=== PATIENT | male | born 1945 | race Caucasian/White ===

== ENCOUNTER → 2018-04-04 01:28 | Outpatient (CLI) | payer MEDICARE, BC, SELFPAY ==
--- NOTE | 2018-04-04 14:38 | SCREENCT_ITS ---
SYMPTOM/DIAGNOSIS: PERSONAL HX NICOTINE DEPENDENCY Z87.[address] FOR LUNG CANCER SCREENING PROTOCOL: 04/[address] was performed utilizing lung cancer screening protocol. Previous requisition indicates the patient has a history of lung carcinoma. There is a spiculated lesion measuring about 3 cm in greatest diameter in the right upper lobe consistent with a previously treated lesion. This appears stable in size in comparison with previous examination of 04/10/17. No new additional lesions identified. No new intrapulmonary nodules seen. CONCLUSION: No gross interval change in appearance of previously noted lung carcinoma. No new nodules identified. Category 2-C, continue annual screening with LDCT in 12 months. Lung-RAD Category: Lung RADS Category 2- Benign Appearance/Behavior
== END ==
PROVIDERS: PCP Internal Medicine; Visit Provider Internal Medicine
DX: Z85.118 Personal history of other malignant neoplasm of bronchus and lung (principal); Z87.891 Personal history of nicotine dependence
CPT/HCPCS: G0297

== ENCOUNTER 2018-05-01 14:32 | Outpatient (CLI) | payer MEDICARE, BC, SELFPAY ==
[2018-05-01 14:53] LABS: HCT 42.3 % (40.0-50.0); HGB 13.5 g/dL (13.5-17.5); Mean Corp. HGB Concentration 31.9 g/dL (32.0-36.0); Mean Corpuscular Hemoglobin 30.2 pg (27.0-33.0); Mean Corpuscular Volume 94.6 fL (80-95); Mean Platelet Volume 9.9 fL (8.0-11.0); Platelet Count 218 x1000/uL (130-400); RBC 4.47 m/cumm (4.50-6.00); RBC Distribution Width 13.2 % (11.8-14.1); White Blood Cell Count 9.45 k/cumm (4.4-10.8)
[2018-05-01 15:33] LABS: ESR 10 MM/HR (1-20)
[2018-05-01 16:35] LABS: ALT 21 U/L (12-78); AST 16 U/L (15-37); Albumin 3.9 g/dL (3.4-5.0); Alkaline Phosphatase 99 U/L (46-116); Anion Gap 8.9 mmol/L (3-11); BUN 13 mg/dL (7-18); Bilirubin, Total 0.3 mg/dL (0.2-1.0); CO2 29.1 mmol/L (21.0-32.0); CREATININE 0.84 mg/dL (0.70-1.30); Calcium 9.1 mg/dL (8.5-10.1); Chloride 103 mmol/L (98-107); Cholesterol 136 mg/dL (50-200); Glucose 122 mg/dL (70-100); HDL Cholesterol 48 mg/dL (40-60); LDL CHOLESTEROL 77 mg/dL (<100); Potassium 4.3 mmol/L (3.5-5.1); Sodium 141 mmol/L (136-145); Triglyceride 99 mg/dL (30-150)
== END 2018-05-01 14:52 ==
PROVIDERS: PCP Internal Medicine; Visit Provider Internal Medicine
DX: I10 Essential (primary) hypertension (principal); J44.9 Chronic obstructive pulmonary disease, unspecified; M25.512 Pain in left shoulder
CPT/HCPCS: 36415; 80053; 80061; 83721; 85027; 85652

== ENCOUNTER 2018-08-26 09:46 | Outpatient (CLI) | payer MEDICARE, BC, SELFPAY ==
--- NOTE | 2018-08-26 14:45 | DI.CT_ITS ---
SYMPTOM/DIAGNOSIS: H/O RUL LUNG CA, S/P RADIATION, ASSESS FOR RECURRENCE CHEST CT: Comparison is made with 04/10/17 and 04/04/18. A noncontrast exam was performed. There has been slight interval increase in size of previously noted right upper lobe mass and area of scarring. The mass appears denser when compared with previous exams. It measures 3 by 2 by 1.3 cm. A 4 by 6 mm. nodule is seen in the right middle lobe. Underlying emphysematous changes are noted. There is again noted to be a large bleb posterior to the heart. No infiltrates, pleural or pericardial effusions are seen. No adenopathy is seen. Multiple cysts are again demonstrated in the liver. The spleen is normal. The gallbladder, adrenals and visualized portions of the kidneys as well as gallbladder are unremarkable. Coronary artery calcifications and aortic calcifications are seen. There are severe degenerative changes in the lower thoracic spine as well as previous surgery in the upper lumbar region. An aortic stent is partially included on the exam. IMPRESSION: Interval increase in size and central density of the previously noted right upper lobe mass. A 4 by 6 mm. nodule is now seen in the right middle lobe.
== END 2018-08-26 10:06 ==
PROVIDERS: PCP Internal Medicine; Visit Provider Nurse Practitioner
DX: C34.91 Malignant neoplasm of unspecified part of right bronchus or lung (principal); Z92.3 Personal history of irradiation; R91.1 Solitary pulmonary nodule
CPT/HCPCS: 71250

== ENCOUNTER 2018-12-27 01:12 | Outpatient (CLI) | payer MEDICARE, BC, SELFPAY ==
--- NOTE | 2018-12-27 12:45 | DI.CT_ITS ---
SYMPTOMS/DIAGNOSIS: RIGHT LUNG CA, C34.11, INCREASING SIZE OF RIGHT UPPER LOBE MASS, ASSESS PROGRESSION CHEST CT: Comparison is made with August,. A post contrast exam was performed. There has been no change in size or appearance of the previously noted mass in the posterior right upper lobe. A 6 mm nodule was seen on the previous exam in the right middle lobe, which was not identified on the current exam. No new nodules are identified. There are no pleural or pericardial effusions. Underlying emphysematous changes and atherosclerotic changes of the aorta are again noted. Cysts are again identified in the liver. The adrenals and upper portions of the spleen and kidneys are unremarkable. Degenerative changes are noted in the spine. IMPRESSION: Stable size and appearance of the right upper lobe mass.
[2018-12-27 13:19] LABS: CREATININE 0.86 mg/dL (0.70-1.30)
[2018-12-27] MEDS: Omnipaque 350 MG/ML 100 ML BTL IJ (14:03)
== END 2018-12-27 01:32 ==
PROVIDERS: PCP Internal Medicine; Visit Provider Nurse Practitioner
DX: C34.11 Malignant neoplasm of upper lobe, right bronchus or lung (principal)
CPT/HCPCS: 71260; 82565; J3490

== ENCOUNTER 2019-04-28 00:46 | Outpatient (CLI) | payer MEDICARE, BC, SELFPAY ==
[2019-04-28 12:34] LABS: CREATININE 0.86 mg/dL (0.70-1.30)
--- NOTE | 2019-04-28 13:13 | DI.CT_ITS ---
SYMPTOMS/DIAGNOSIS: CANCER, UPPER LOBE, RIGHT LUNG, C34.11; ASSESS FOR DISEASE PROGRESSION CHEST CT: Comparison is made with the prior study of 12/27/2018. The study was carried out according to the usual protocol with contrast enhancement. Again demonstrated is the right upper lobe mass, which appears unchanged in size. No other pulmonary mass or region of nodularity is demonstrated. There is evidence of COPD. There is no evidence of hilar or mediastinal adenopathy. There is no pleural effusion. The heart is not enlarged. Coronary artery calcification is demonstrated. There are atherosclerotic changes involving the aorta without evidence of an aneurysm. Again noted are hepatic cysts. The kidneys are intact, unchanged. The adrenals are unremarkable. SUMMARY: No interval change when compared with the prior study with note again made of a right upper lobe mass, which appears stable, measuring approximately 21-22 mm in diameter. There is evidence of COPD. No other mass or area of nodularity involving the lungs is apparent.
[2019-04-28] MEDS: Omnipaque 350 MG/ML 100 ML BTL IJ (13:19)
== END 2019-04-28 01:06 ==
PROVIDERS: PCP Internal Medicine; Visit Provider Nurse Practitioner
DX: C34.11 Malignant neoplasm of upper lobe, right bronchus or lung (principal); J44.9 Chronic obstructive pulmonary disease, unspecified
CPT/HCPCS: 36415; 71260; 82565; J3490

== ENCOUNTER 2022-05-31 14:56 | Outpatient (REF) | payer MEDICARE, SELFPAY ==
[2022-05-31 14:15] LABS: HCT 42.8 % (40.0-50.0); HGB 13.3 g/dL (13.5-17.5); MCH 30.2 pg (27.0-33.0); MCHC 31.1 % (32.0-36.0); MCV 97 fL (80-95); MPV 10.2 fL (8.0-11.0); Platelet Count 257 10^3/uL (130-400); RBC 4.41 10^6/uL (4.36-5.78); RDW 12.6 % (11.8-14.1); RDW-SD 45.4 fL
[2022-05-31 14:53] LABS: ALT 23 U/L (16-63); AST 17 U/L (15-37); Albumin 4.1 g/dL (3.4-5.0); Alkaline Phosphatase 106 U/L (46-116); Anion Gap 3.9 mmol/L (3-11); BUN 15 mg/dL (7-18); Bilirubin, Total 0.6 mg/dL (0.2-1.0); CO2 34.1 mmol/L (21.0-32.0); CREATININE 0.7 mg/dL (0.70-1.30); Calcium 9.5 mg/dL (8.5-10.1); Chloride 101 mmol/L (98-107); Estimated GFR 93.73 (mL/min/1.73m2); Glucose 106 mg/dL (74-106); Potassium 4.9 mmol/L (3.5-5.1); Sodium 139 mmol/L (136-145); TSH (W/Ref FT4) 1.56 uIU/mL (0.36-3.74); Total Protein 7.3 g/dL (6.4-8.2); Vitamin B12 759 pg/mL (193-986)
== END 2022-05-31 14:57 | disposition home or self-care (01) ==
LOC: LBN 14:56
PROVIDERS: PCP Nurse Practitioner Family; Visit Provider Family Medicine
DX: D50.9 Iron deficiency anemia, unspecified (principal); J96.11 Chronic respiratory failure with hypoxia; M06.9 Rheumatoid arthritis, unspecified; R53.83 Other fatigue; J43.2 Centrilobular emphysema; J96.02 Acute respiratory failure with hypercapnia; E11.9 Type 2 diabetes mellitus without complications
CPT/HCPCS: 80053; 85027; 82607; 83036; 84443

== ENCOUNTER 2023-05-16 21:57 | Emergency (ER) | payer MEDICARE, SELFPAY ==
[2023-05-16 21:59] VITALS: BP 171/91; PULSE 99; RESP 18; TEMP 36.8; O2SAT 95
--- NOTE | 2023-05-16 22:12 | ED.GENADUL_ITS ---
Discharge Plan Disposition Patient Disposition: Home Condition: Stable Discharge Details Clinical Impression: Dental infection Primary Care Provider: Chris Call ED Provider: Turner Deutsch [place] Meds and New Rx's Prescriptions: New clindamycin HCl 150 mg capsule 450 mg PO TID 7 Days Qty: 63 0RF Continued (DME) inhaler,assist devices,access Device See Rx Instructions .ROUTE .MEDSUPPLY Qty: 1 0RF Rx Instructions: As directed naloxone [Narcan] 4 mg/actuation spray,non-aerosol 4 mg NS PRN Qty: 2 0RF Stelara 90 MG/1 ML syringe 90 mg SQ [id number] Patient Comments: 12/06/16-Not taking as insurance won't pay/pps mometasone 50 mcg/actuation spray,non-aerosol 2 spray PORSCHE DAILY Qty: 17 5RF Rx Instructions: administer into each nostril guaifenesin 200 mg/5 mL liquid 200 mg PO Q4H PRN (Reason: cough) Qty: 473 0RF (DME) Aerochamber MV Spacer See Rx Instructions .ROUTE .MEDSUPPLY Qty: 1 0RF Rx Instructions: As directed (DME) Oxygen Tank See Rx Instructions .ROUTE .MEDSUPPLY Qty: 1 0RF Rx Instructions: 3Lpm continuous flow as directed (continuous flow portable concentrator) Breztri Aerosphere 160-9-4.8 mcg/actuation HFA aerosol inhaler See Rx Instructions .ROUTE .COMPLEX Qty: 10.7 12RF Dose Instruction: INHALE 2 PUFFS BY MOUTH TWICE DAILY FOR COPD Rx Instructions: INHALE 2 PUFFS BY MOUTH TWICE DAILY FOR COPD dextromethorphan-guaifenesin 20-400 mg/5 mL liquid 5 ml PO Q6H PRN (Reason: cough) Qty: 473 6RF atorvastatin 40 mg tablet 40 mg PO QPM Qty: 90 3RF tamsulosin [Flomax] 0.4 mg capsule 0.8 mg PO QAM Qty: 180 4RF mesalamine [Lialda] 1.2 gram tablet,delayed release (DR/EC) 1.2 g PO DAILY Qty: 90 3RF diclofenac sodium 1 % gel 4 g topical QID Qty: 100 3RF Rx Instructions: Apply to affected area four times daily as needed. acetylcysteine [NAC] 600 mg capsule 600 mg PO BID Qty: 60 12RF sertraline 100 mg tablet 200 mg PO DAILY Qty: 180 3RF albuterol sulfate 2.5 mg /3 mL (0.083 %) solution for nebulization 2.5 mg inhalation Q4H PRN (Reason: shortness of breath or wheezing) Qty: 540 3RF albuterol sulfate [ProAir HFA] 90 mcg/actuation HFA aerosol inhaler 2 puff Inhalation Q4H PRN Qty: 3 4RF finasteride 5 mg tablet 5 mg PO HS Qty: 90 4RF oxycodone-acetaminophen 10-325 mg tablet 1 tab PO Q6H MDD 4 pills PRN (Reason: pain) Qty: 120 0RF lorazepam [Ativan] 1 mg tablet 1 mg PO BID-TID PRN (Reason: anxiety) Qty: 5 0RF Rx Instructions: take only if needed for anxiety. multivitamin 1 EACH capsule 1 ea PO Discharge Instructions Additional Instructions: You are being treated for a dental infection You should follow up with a dentist as soon as possible if you feel more ill, have severe worsening pain or new symptoms such as inability to swallow liquids return to the emergency department Medical Decision Making 78 yo male who has multiple medical problems and is on home o2 and states is hard for him to leave the house, comes in with 3 days of dental pain. HE localizes the pain to the right lower mid molars. HE is caox4 speaking clearly on arrival in no distress. He has mild swelling of the right lower mid mandible, numerous dental caries. HE has tenderness over the right lower mid molar, no visible abscess. NOrmal posterior pharynx, midline uvula, no restricted neck movements. He has no submandibular swelling, no restricted neck movemements and no pain over the hyoid. HE denies fevers/chills. No findings on exam to suggest ludwigs or other more serious infections such as epiglotitis. Will start on clindamycin given pcn allergy, advised he needs to f/u with a dentist erika and return precautions given Differential Diagnosis Differential Diagnosis: dental infection, abscess HPI General Mode of arrival: EMS . Date/Time Provider Initiated Documentation: 05/16/23 22:04 . Limitations to Documentation: no limitations . Information obtained by: patient . History of Present Illness 78 year old M presents to the emergency department with the chief complaint of right lower dental pain/swelling, described as moderate, Quality is described as aching, Patient started experiencing this day(s) (3) and it has been constant. No relieving factors improve symptom(s), No exacerbating factors reported . Patient notes no other symptoms.. Related Data Home Medications Medication Instructions Recorded Confirmed ustekinumab 90 mg/mL subcutaneous 90 mg SQ [id number] 12/29/15 04/11/23 syringe (Stelara) multivitamin 1 ea PO 05/28/17 04/11/23 mometasone 50 mcg/actuation nasal 2 spray intranasal DAILY #17 grams 06/16/19 04/11/23 spray guaifenesin 200 mg/5 mL oral liquid 200 mg (5 mL) PO Q4H PRN cough 09/16/20 04/11/23 #473 mL inhaler,assist devices,access #1 ea 03/25/21 04/11/23 inhalational spacing device #1 ea 04/07/21 04/11/23 (Aerochamber MV spacer) naloxone 4 mg/actuation nasal 4 mg NS PRN #2 ea 12/14/21 04/11/23 spray (Narcan) Oxygen #1 ea 12/29/21 04/11/23 budesonide 160 mcg-glycopyr 9 See Rx Instructions .Route 05/11/22 04/11/23 mcg-formot 4.8 mcg/actuation HFA .COMPLEX #10.7 grams inhaler (Breztri Aerosphere) dextromethorphan-guaifenesin 20 5 ml PO Q6H PRN cough #473 mL 06/21/22 04/11/23 mg-400 mg/5 mL oral liquid atorvastatin 40 mg tablet 40 mg PO QPM #90 tabs 09/13/22 04/11/23 tamsulosin 0.4 mg capsule (Flomax) 0.8 mg PO QAM #180 caps 09/13/22 04/11/23 mesalamine 1.2 gram tablet,delayed 1.2 g PO DAILY #90 tab-caps 09/18/22 04/11/23 release (Lialda) diclofenac sodium 1 % topical gel 4 g topical QID #100 grams 11/29/22 04/11/23 acetylcysteine 600 mg capsule (NAC) 600 mg PO BID #60 caps 12/11/22 04/11/23 sertraline 100 mg tablet 200 mg PO DAILY #180 tabs 01/10/23 04/11/23 albuterol sulfate 2.5 mg/3 mL 2.5 mg (3 mL) inhalation Q4H PRN 02/01/23 04/11/23 (0.083 %) solution for nebulization shortness of breath or wheezing #540 mL albuterol sulfate 90 mcg/actuation 2 puff inhalation Q4H PRN ##3 02/01/2304/11 aerosol inhaler (ProAir HFA) finasteride 5 mg tablet 5 mg PO HS #90 tabs 02/08/23 04/11/23 oxycodone-acetaminophen 10 mg-325 1 tab PO Q6H PRN pain #120 tabs 05/02/23 mg tablet lorazepam 1 mg tablet (Ativan) 1 mg PO BID-TID PRN anxiety #5 05/09/23 tab-caps clindamycin HCl 150 mg capsule 450 mg PO TID 7 days #63 caps 05/16/23 Previous Rx's Medication Instructions Recorded mometasone 50 mcg/actuation nasal 2 spray intranasal DAILY #17 grams 06/16/19 spray guaifenesin 200 mg/5 mL oral liquid 200 mg (5 mL) PO Q4H PRN cough 09/16/20 #473 mL inhaler,assist devices,access #1 ea 03/25/21 inhalational spacing device #1 ea 04/07/21 (Aerochamber MV spacer) naloxone 4 mg/actuation nasal 4 mg NS PRN #2 ea 12/14/21 spray (Narcan) Oxygen #1 ea 12/29/21 budesonide 160 mcg-glycopyr 9 See Rx Instructions .Route 05/11/22 mcg-formot 4.8 mcg/actuation HFA .COMPLEX #10.7 grams inhaler (Breztri Aerosphere) dextromethorphan-guaifenesin 20 5 ml PO Q6H PRN cough #473 mL 06/21/22 mg-400 mg/5 mL oral liquid atorvastatin 40 mg tablet 40 mg PO QPM #90 tabs 09/13/22 tamsulosin 0.4 mg capsule (Flomax) 0.8 mg PO QAM #180 caps 09/13/22 mesalamine 1.2 gram tablet,delayed 1.2 g PO DAILY #90 tab-caps 09/18/22 release (Lialda) diclofenac sodium 1 % topical gel 4 g topical QID #100 grams 11/29/22 acetylcysteine 600 mg capsule (NAC) 600 mg PO BID #60 caps 12/11/22 sertraline 100 mg tablet 200 mg PO DAILY #180 tabs 01/10/23 albuterol sulfate 2.5 mg/3 mL 2.5 mg (3 mL) inhalation Q4H PRN 02/01/23 (0.083 %) solution for nebulization shortness of breath or wheezing #540 mL albuterol sulfate 90 mcg/actuation 2 puff inhalation Q4H PRN ##3 02/01/23 aerosol inhaler (ProAir HFA) finasteride 5 mg tablet 5 mg PO HS #90 tabs 02/08/23 oxycodone-acetaminophen 10 mg-325 1 tab PO Q6H PRN pain #120 tabs 05/02/23 mg tablet lorazepam 1 mg tablet (Ativan) 1 mg PO BID-TID PRN anxiety #5 05/09/23 tab-caps clindamycin HCl 150 mg capsule 450 mg PO TID 7 days #63 caps 05/16/23 Allergies Allergy/AdvReac Type Severity Reaction Status Date / Time levofloxacin Allergy Severe severe Verified 04/11/23 10:52 calf pain Penicillins Allergy Unknown Verified 04/11/23 10:52 sertraline AdvReac Intermediate Myalgias Verified 04/11/23 10:52 erythromycin base AdvReac Unknown NAUSEA/ Verified 04/11/23 10:52 VOMITING General Stated Complaint: DentalOral LESLEY: 4 Review of Systems All systems reviewed & are unremarkable except as noted in HPI and below Constitutional Constitutional: Denies chills, Denies fever(s) and Denies weakness Cardiovascular Cardiovascular: Denies chest pain and Denies dyspnea Respiratory Respiratory: Denies cough and Denies dyspnea Gastrointestinal Gastrointestinal: Denies abdominal pain, Denies nausea and Denies vomiting Musculoskeletal Musculoskeletal: Denies joint swelling Neurologic Neurologic: Denies weakness Endocrine Endocrine: Denies cold intolerance PFSH All Active Problems (Updated 05/16/23 @ 22:16 by Turner Deutsch MD) Dental infection (Acute) Generalized muscle weakness (Acute) Insomnia (Acute) Respiratory failure with hypoxia (Acute) Supplemental oxygen dependent (Acute) Anxiety (Chronic) Depression (Chronic) Cholelithiasis without obstruction (Acute) History of spinal fusion (Acute) Iron deficiency anemia (Acute) Sleep disorder (Chronic 02/25/14) Rheumatoid arthritis (Chronic) Psoriasis (Chronic) Pain in thoracic spine (Chronic) Knee pain (Chronic) Hyperlipidemia (Chronic) Fatigue (Chronic 07/15/07) Essential hypertension (Chronic) Disorder characterized by back pain (Chronic) S/P spinal fusion 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 Be in the office until May 12 which is about a week after his third prescription of 120 pills might . I will try to make a third prescription lasts an extra week if the pharmacy will allow it. I explained the situation to him and he understands. He may need to get this filled from a different provider here in April therefore. BPH (benign prostatic hyperplasia) (Chronic 12/16/12) Aortic aneurysm (Acute) AAA-repaired 2006 ([facility] [place] Non-small cell carcinoma of lung (Chronic) February 2010 a. presented with 1.8 cm spiculated nodule, positive PET scan, received radiation and chemotherapy since that time, no metastatic disease found b. follow up CT 11/21/2013 showed a decrease in size of lingular density, positive liver cysts, but no evidence of metastatic disease COPD (chronic obstructive pulmonary disease) (Chronic) a. ongoing tobacco use Tobacco abuse (Chronic) Chronic back pain (Chronic) a. secondary to scoliosis b. narcotic dependent Hyperlipidemia (Chronic) Hypertension (Chronic) Psoriasis (Chronic) a. multiple modalities including most recently methotrexate Rheumatoid arthritis (Chronic) a. diagnosed as a child, no Rx Recurrent angina (Chronic) a. MPI 05/19/2010 showed inferoseptal fixed defect, no ischemia AAA (abdominal aortic aneurysm) (Chronic) a. S/p endovascular repair Medical History (Updated 05/16/23 @ 22:16 by Turner Deutsch MD) Arthritis BPH (benign prostatic hyperplasia) Essential hypertension H/O psoriasis History of lung cancer Hyperlipidemia Osteoarthritis Palliative care patient Rheumatoid arthritis Surgical History (Updated 12/09/20 @ 11:21 by Chris Call NP) ANEURYSM, ABDOMINAL AORTIC (~2006) [facility] [place] Spinal Fusion Family History (Updated 03/15/21 @ 11:48 by Fiona Batres) Mother Psoriasis Father Psoriasis Son Psoriasis Daughter Psoriasis Maternal Grandmother Diabetes Social History (Updated 03/15/21 @ 11:50 by Fiona Batres) Smoking/Tobacco Use Status: Former Tobacco Use Quit Date: 08/13/10 Tobacco: How many years used: 50 Smoking risk assessment performed?: Yes Alcohol Intake: former Drug use: Never Substance use type: does not use Housing: house current occupation: TEACHER Pets and animals: Yes (1 dog) Pets and animals: dog(s) Do you feel safe at home: Yes Do you feel safe in your relationship?: Yes Exam Const General: no acute distress Orientation: alert HENMT Head: normal to inspection Ears: external ears normal General nose exam: external nose normal Mouth: moist mucous membranes Eyes General: appearance normal, both eyes and all related structures Neck Neck: normal visual inspection Resp Effort & Inspection: normal respiratory effort and able to speak in complete sentences Cardio Rate: regular rate Skin General skin exam: no rashes or lesions noted Neuro General: patient alert and patient oriented x3 Extrem General: normal to inspection Psych Mental Status: mental status grossly normal Course Vital Signs Vital signs: Vital Signs Temperature 36.8 C 05/16/23 21:59 Pulse 99 H 05/16/23 21:59 Respiratory Rate 18 05/16/23 21:59 Blood Pressure 171/91 H 05/16/23 21:59 Pulse Oximetry 95 05/16/23 21:59 Temperature 36.8 C 05/16/23 21:59 Temperature Source Tympanic 05/16/23 21:59 Pulse 99 H 05/16/23 21:59 Respiratory Rate 18 05/16/23 21:59 Respiratory Effort Short of Breath 05/16/23 22:04 Blood Pressure 171/91 H 05/16/23 21:59 Pulse Oximetry 95 05/16/23 21:59 Oxygen Delivery Method Nasal Cannula 05/16/23 21:59 Oxygen Flow Rate 4 05/16/23 21:59 Pain Level 4 05/16/23 22:04
[2023-05-16] MEDS: Clindamycin 150 MG CAP 450 MG PO (22:20)
[2023-05-16 23:20] VITALS: BP 171/91; PULSE 99; RESP 18; TEMP 36.8; O2SAT 95
--- NOTE | 2023-05-16 23:26 | NUR.NOTE ---
Left a message to son about pick up worker from emergency department
[2023-05-16 23:47] VITALS: BP 136/86; PULSE 90; RESP 16; TEMP 36.9; O2SAT 96
== END 2023-05-16 23:49 | disposition home or self-care (01) ==
LOC: ER 22:43
PROVIDERS: Emergency Provider Emergency Medicine; PCP Nurse Practitioner Family
DX: R68.84 Jaw pain (principal)
CPT/HCPCS: 99283; 99284

== ENCOUNTER 2024-11-11 02:37 | Outpatient (CLI) | payer MEDICARE, SELFPAY ==
--- NOTE | 2024-11-11 13:58 | TELEFU_ITS ---
Date of service: 11/11/24 Time of Service: 13:00 Nutrition Note NOTE: had scheduled an [id number] appointment with Rui due to homebound/difficulty getting out. Rui is 79yo male experiencing unintentional weight loss. His ability to perform ADL's has decreased with weakness and respiratory issues related to COPD. He receives daily lunch from meals on wheels and takes 1 protein shake with 30g protein daily. He recalls his weight from home health visit yesterday was 133lbs which is down 5lbs from 09/02/24. Current BMI is 21.5. He would like to hit goal weight of 140lbs. He has help getting grocery shopping and has poultry cleaner come every couple weeks for housekeeping. We discussed easy to prepare, high kcal/protein meals/snacks and suggested he aim for trying to eat 6 times per day. Right now he gets up and has breakfast (usually coffee and oreo cookies) around 9 and eats a late lunch around 2pm. We discussed trying to get protein at [employer] and maybe trying to have the protein drink as an easy to take snack around noon, then plan on lunch at 2pm or so. We discussed strategies like dipping bread in seasoned olive oil, hard cooking eggs, keeping canned meats on hand, using peanut butter, cottage cheese, cheese, precut frozen veggies and instant rices for easy to eat sources of protein/energy. He agreed to a phone call in a couple weeks to check in on weight and intake and try to troubleshoot some more if weight is still deteriorating. Time Spent in Nutritional Counseling and Treatment: 15 minutes
== END 2024-11-11 02:38 | disposition home or self-care (01) ==
PROVIDERS: PCP Nurse Practitioner Family; Visit Provider Dietitian, Registered
DX: R63.4 Abnormal weight loss (principal)
CPT/HCPCS: 00123; 97802